=== PATIENT | female | born 1950 | race Caucasian/White ===

== ENCOUNTER → 2018-08-18 12:02 | Outpatient (POV) | payer MEDICARE, SELFPAY ==
[2018-08-18 12:32] VITALS: BP 116/79; PULSE 58; RESP 20; O2SAT 98; BMI 32.3
--- NOTE | 2018-08-18 13:10 | HMH.PMCON ---
Assessment and Plan (1) Degenerative joint disease (DJD) of lumbar spine Current visit: Yes Status: Chronic Qualifiers: Spinal osteoarthritis complication: with radiculopathy Qualified Code(s): M47.26 - Other spondylosis with radiculopathy, lumbar region Category: Medical Code(s): M47.816 - Spondylosis without myelopathy or radiculopathy, lumbar region - Assessment and plan all Dx Assessment and Plan for all problems:: This patient has a intrathecal pain pump which is end-of-life. I have given her 2 options she can either undergo a surgical procedure to remove her current intrathecal pain pump and since it was helping we can replace it with a new pain pump system catheter and battery. If she does not want to undergo a surgical procedure she can leave her pain pump as is as it is already the end of life and will not cause any further problems or issues and she does not have to have it removed. HPI - Data of Consult Patient: new to practice Consult date: 08/18/18 Requesting Physician: Ishmael White MD Primary Care Provider: Power Swasnon - Consult Narrative Reason for consult: Patient with end-of-life pain pump History of present illness: Ms. Redd is a 68 year old female who is currently in a correction. She has had a stroke and is a poor historian. According to her records she had a pain pump installed in 2009. I believe this was installed by Dr. Fernando Berg and Selina Breen MD. This was done at [facility] in July 2009. This was a [employer] pump. We have interrogated his pump and it is already at end of life. It is no longer functioning. Her last pump refill there is to be back in 2012. Her pump is currently nonfunctional, however, when it was functional it was helping significantly. She is referred to us for evaluation of her intrathecal pain pump and options as far as treatment. Patient does still have increasing low back pain and leg pain. Again when her pump was functionally did help significantly. CC: Ishmael White MD [facility] History I have reviewed the patient's past medical history: Yes Medical History: Reports:: Anxiety, Chronic Obstructive Pulmonary Disease (COPD), Coronary Artery Disease, Diabetes Mellitus Type 2, Gastroesophageal Reflux Disease(GERD), Hyperlipidemia, Hypertension Denies:: Cancer, MRSA *Have you ever received a pneumonia vaccine?: Yes *Have you received a flu vaccine this season?: Yes Other Medical History: Reports: Arthritis Other Surgeries: Yes: Other (pain pump implant) Amputation: No Fractures: No - *Social History Smoking Status: Unknown if ever smoked Alcohol Intake: never *Occupational Status:: disabled Housing: correction *Travel in the last 8 weeks: None - Psychiatric History Pschychiatric History:: Reports:: Anxiety Family Hx:: Unable to obtain Review of Systems - Review of Systems Review of systems:: pertinent systems reviewed and negative unless documented below - *Musculoskeletal Reports back pain Meds Home Medications Medication Instructions Recorded Confirmed Type amiodarone 200 mg tablet 200 mg PO DAILY 07/25/18 08/18/18 History apixaban 5 mg tablet 5 mg PO BID 07/25/18 08/18/18 History aspirin 81 mg tablet,delayed 81 mg PO DAILY 07/25/18 08/18/18 History release atorvastatin 40 mg tablet 40 mg PO DAILY 07/25/18 08/18/18 History gabapentin 300 mg capsule 300 mg PO TID 07/25/18 08/18/18 History icosapent ethyl 1 gram capsule 2 g PO BID 07/25/18 08/18/18 History lactulose 10 gram/15 mL oral 15 ml PO DAILY 07/25/18 08/18/18 History solution lorazepam 1 mg tablet 1 mg PO BID 07/25/18 08/18/18 History oxycodone-acetaminophen 5 mg-325 1 tab PO Q4-6H PRN 07/25/18 08/18/18 History mg tablet perphenazine 4 mg tablet 8 mg PO DAILY 07/25/18 08/18/18 History potassium chloride ER 10 mEq 10 meq PO DAILY 07/25/18 08/18/18 History tablet,extended release quetiapine 50 mg tablet 50 mg PO TID 07/25/18 08/18/18 History senno
--- NOTE | 2018-08-18 13:14 | P.CONS_ITS ---
Assessment and Plan (1) Degenerative joint disease (DJD) of lumbar spine Current visit: Yes Status: Chronic Qualifiers: Spinal osteoarthritis complication: with radiculopathy Qualified Code(s): M47.26 - Other spondylosis with radiculopathy, lumbar region Category: Medical Code(s): M47.816 - Spondylosis without myelopathy or radiculopathy, lumbar region - Assessment and plan all Dx Assessment and Plan for all problems:: This patient has a intrathecal pain pump which is end-of-life. I have given her 2 options she can either undergo a surgical procedure to remove her current intrathecal pain pump and since it was helping we can replace it with a new pain pump system catheter and battery. If she does not want to undergo a surgical procedure she can leave her pain pump as is as it is already the end of life and will not cause any further problems or issues and she does not have to have it removed. HPI - Data of Consult Patient: new to practice Consult date: 08/18/18 Requesting Physician: Ishmael White MD Primary Care Provider: Power Swanson - Consult Narrative Reason for consult: Patient with end-of-life pain pump History of present illness: Ms. Redd is a 68 year old female who is currently in a long-term. She has had a stroke and is a poor historian. According to her records she had a pain pump installed in 2009. I believe this was installed by Dr. Fernando Berg and Selina Breen MD. This was done at [facility] in July 2009. This was a [employer] pump. We have interrogated his pump and it is already at end of life. It is no longer functioning. Her last pump refill there is to be back in 2012. Her pump is currently nonfunctional, however, when it was functional it was helping significantly. She is referred to us for evaluation of her intrathecal pain pump and options as far as treatment. Patient does still have increasing low back pain and leg pain. Again when her pump was functionally did help significantly. CC: Ishmael White MD [facility] History I have reviewed the patient's past medical history: Yes Medical History: Reports:: Anxiety, Chronic Obstructive Pulmonary Disease (COPD), Coronary Artery Disease, Diabetes Mellitus Type 2, Gastroesophageal Reflux Disease(GERD), Hyperlipidemia, Hypertension Denies:: Cancer, MRSA *Have you ever received a pneumonia vaccine?: Yes *Have you received a flu vaccine this season?: Yes Other Medical History: Reports: Arthritis Other Surgeries: Yes: Other (pain pump implant) Amputation: No Fractures: No - *Social History Smoking Status: Unknown if ever smoked Alcohol Intake: never *Occupational Status:: disabled Housing: long-term *Travel in the last 8 weeks: None - Psychiatric History Pschychiatric History:: Reports:: Anxiety Family Hx:: Unable to obtain Review of Systems - Review of Systems Review of systems:: pertinent systems reviewed and negative unless documented below - *Musculoskeletal Reports back pain Meds Home Medications Medication Instructions Recorded Confirmed Type amiodarone 200 mg tablet 200 mg PO DAILY 07/25/18 08/18/18 History apixaban 5 mg tablet 5 mg PO BID 07/25/18 08/18/18 History aspirin 81 mg tablet,delayed 81 mg PO DAILY 07/25/18 08/18/18 History release atorvastatin 40 mg tablet 40 mg PO DAILY 07/25/18 08/18/18 History gabapentin 300 mg capsule 300 mg PO TID 07/25/18 08/18/18 History icosapent ethyl 1 gram capsule 2 g PO BID 07/25/18 08/18/18 History lactu
== END ==
PROVIDERS: PCP Family Medicine; Visit Provider Anesthesiology
DX: M47.26 Other spondylosis with radiculopathy, lumbar region (principal)
CPT/HCPCS: 99202